=== PATIENT | female | born 2000 | race Hispanic/Latino ===

== ENCOUNTER 2021-03-30 07:41 | Outpatient (CLI) | payer OTHER | END 2021-03-30 07:42 | disposition home or self-care (01) | LOC: ULT 07:41 → BICULT 07:42 | PROVIDERS: ATTEND Family Medicine | DX: M54.50 Low back pain, unspecified (principal); M53.3 Sacrococcygeal disorders, not elsewhere classified; R16.0 Hepatomegaly, not elsewhere classified | CPT/HCPCS: 72100; 76705 ==